=== PATIENT | male | born 1980 | race Two or more races ===

== ENCOUNTER 2018-03-05 01:34 | Emergency (ER) | payer SELFPAY ==
[~2018-03-05] VITALS: Ht 185.4 cm; Wt 81.6 kg
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
--- NOTE | 2018-03-05 02:35 | NUR ---
URINE OBTAINED VIA URINAL AND SENT TO LAB.
--- NOTE | 2018-03-05 03:18 | NUR ---
Patient is resting comfortably in bed with eyes closed. Easily aroused. VSS
--- NOTE | 2018-03-05 05:08 | NUR ---
PT CONTINUES TO REST. VSS. NO COMPLAINTS AT THIS TIME.
--- NOTE | 2018-03-05 06:25 | NUR ---
Patient discharged to home in stable condition. Written and verbal after care instructions given. Patient verbalizes understanding of instruction.
[2018-03-05 07:01] VITALS: BP 112/62
== END 2018-03-05 06:30 | disposition home or self-care (01) ==
LOC: ER 01:36 → EDBD 01:36 → ER 06:30
DX: T43.625A Adverse effect of amphetamines, initial encounter (principal); F12.10 Cannabis abuse, uncomplicated; R45.1 Restlessness and agitation; Y92.89 Other specified places as the place of occurrence of the external cause
CPT/HCPCS: 36415; 80305; 99283; A4606; G0480; Z7610